=== PATIENT | female | born 1990 | race Caucasian/White ===

== ENCOUNTER 2018-10-09 13:39 | Emergency (ER) | payer MEDICAID, OTHER ==
[~2018-10-09] VITALS: Ht 162.6 cm; Wt 89.9 kg
[~2018-10-09 13:39] MED LIST: PREN-385 PO
--- NOTE | 2018-10-09 13:43 | NUR ---
PT ambulated to bed 04.
[2018-10-09 13:46] VITALS: BP 150/93
--- NOTE | 2018-10-09 13:50 | NUR ---
Note undmarianna in EDM - 10/09/18 at 1407 by [facility] BIB W/ C/O POUNDING HEADACHE RADIATING TO NECK, SPINE, LOWER BACK SINCE SHE HAD HER BABY ON 10/03/18. PT STATES THAT SHE HAD A NORMAL VAGINAL DELIVERY WITH EPIDURAL. PT DENIES DIZZINESS, BLURRED VISION, NVD OR MEDICAL HX. PT AMBULATED WITH STEADY GAIT. HOB UP. BED SIDE RAILS UP X1. ON LOW BED POSITION, LOCKED. ER TO EVALUATE PT.
--- NOTE | 2018-10-09 13:50 | NUR ---
BIB W/ C/O POUNDING HEADACHE RADIATING TO NECK, SPINE, LOWER BACK SINCE SHE HAD HER BABY ON 10/03/18. PT STATES THAT SHE HAD A NORMAL VAGINAL DELIVERY WITH EPIDURAL. PT DENIES DIZZINESS, BLURRED VISION, NVD OR MEDICAL HX. PT AMBULATED WITH STEADY GAIT. PERRLA BRISK 3MM. EQUAL ANGEL STRENGTH TO UPPER AND LOWER EXTREMITIES. HOB UP. BED SIDE RAILS UP X1. ON LOW BED POSITION, LOCKED. ER TO EVALUATE PT.
--- NOTE | 2018-10-09 14:13 | NUR ---
GAVE URINE CUP TO PT. PT AMBULATED TO THE BATHROOM WITH STEADY GAIT.
--- NOTE | 2018-10-09 14:36 | NUR ---
DR BENTLEY AT BEDSIDE FOR PT EVALUATION
--- NOTE | 2018-10-09 14:42 | NUR ---
PT TAKEN TO CT VIA WHEEL CHAIR BY MORPHOLOGY TEACHER
--- NOTE | 2018-10-09 14:42 | NUR ---
Patient taken to 4 via wheelchair by tech.
--- NOTE | 2018-10-09 14:52 | NUR ---
PT TAKEN BACK TO ROOM VIA WHEEL CHAIR BY JAVA WEB DEVELOPER
--- NOTE | 2018-10-09 15:33 | NUR ---
PROVIDED WATER. PT TOLERATED WELL.
--- NOTE | 2018-10-09 16:01 | NUR ---
DR BENTLEY AT BEDSIDE FOR PT RE EVALUATION
[2018-10-09 16:21] VITALS: BP 148/88
--- NOTE | 2018-10-09 16:21 | NUR ---
Patient discharged with v/s stable. Written and verbal after care instructions given and explained. Patient alert, oriented and verbalized understanding of instructions. Ambulatory with steady gait. All questions addressed prior to discharge. ID band removed. Patient advised to follow up with PMD. Rx of NORCO 5MG-325 MG given. Patient educated on indication of medication including possible reaction and side effects. Opportunity to ask questions provided and answered.
== END 2018-10-09 16:21 | disposition home or self-care (01) ==
LOC: MED 13:39
DX: R51 Headache (principal); M54.5 Low back pain; M54.2 Cervicalgia; Z79.899 Other long term (current) drug therapy
CPT/HCPCS: 70450; 99284